=== PATIENT | male | born 1960 | race Caucasian/White ===

== ENCOUNTER 2018-12-16 09:33 | Emergency (ER) | payer MEDICARE, MEDICAID, OTHER ==
[2018-12-16 11:53] LABS: URINE PH (Dip) POC 5.5 (5.0-8.5)
[2018-12-16 11:53] LABS: URINE BLOOD (Dip) POC Trace-lysed (NEGATIVE); URINE GLUCOSE (Dip) POC Negative (NEGATIVE); URINE KETONES (Dip) POC Negative (NEGATIVE); URINE LEUKOCYTE EST (Dip) POC Negative (NEGATIVE); URINE NITRITE (Dip) POC Negative (NEGATIVE); URINE TOTAL PROTEIN POC Negative (NEGATIVE)
== END 2018-12-16 13:27 | disposition home or self-care (01) ==
LOC: FTE 09:33
DX: H61.23 Impacted cerumen, bilateral (principal); I10 Essential (primary) hypertension
CPT/HCPCS: 69209; 81003; 82962; 99282-25

== ENCOUNTER 2019-04-25 12:52 | Emergency (ER) | payer MEDICARE, MEDICAID | END 2019-04-25 13:50 | disposition home or self-care (01) | LOC: E/R 13:50 | DX: Z76.0 Encounter for issue of repeat prescription (principal); I10 Essential (primary) hypertension | CPT/HCPCS: 99281 ==